=== PATIENT | male | born 1975 | race American Indian/Alaskan Native ===

== ENCOUNTER 2019-11-18 07:04 | Emergency (ER) | payer OTHER ==
[2019-11-18] MEDS ORDERED: ASPIRIN 325 MG TAB PO ONE (07:22)
[2019-11-18 07:43] LABS: Basophils # (Auto) 0.1 K/mm3 (0.0-0.1); Eosinophils # (Auto) 0.1 K/mm3 (0.0-0.4); Eosinophils % (Auto) 0.9 % (0.0-4.3); Hemoglobin 16.8 gm/dl (11.8-15.2); Lymphocytes # (Auto) 2.8 K/mm3 (1.2-5.4); Lymphocytes % (Auto) 26.3 % (13.4-35.0); Mean Corpuscular HGB Conc 33 % (32-34); Mean Corpuscular Volume 83 fl (84-94); Monocytes % (Auto) 9.3 % (0.0-7.3); Platelet Count 467 K/mm3 (140-440); Red Blood Count 6.14 M/mm3 (3.65-5.03); Red Cell Distribution Width 19.9 % (13.2-15.2)
[2019-11-18] MEDS ORDERED: MORPHINE 4 MG/1 ML INJ IV ONE (07:49)
[2019-11-18] MEDS ORDERED: SODIUM CHLORIDE 0.9% 1000 ML 1,000 ML IV ONE ×2 (07:49→07:52)
[2019-11-18] MEDS ORDERED: chlorproMAZINE 25 MG in SODIUM CHLORIDE 0.9% 50 ML IV ONE (07:49)
--- NOTE | 2019-11-18 07:50 | Emergency Department Report ---
ED GI Bleed HPI - General Chief complaint: Chest Pain Stated complaint: CHEST PAIN Time Seen by Provider: 11/18/19 07:45 Source: patient Mode of arrival: Ambulatory Limitations: No Limitations - History of Present Illness Initial comments: Chief complaint: I have been vomiting blood all day." HPI: This is a 44-year-old male with history of diverticulitis and tobacco use who presents with hiccups for the past 3 days since . He has nondescript chest pain. He also has vomited blood several times on yesterday. He has had bloody stools for several weeks. Drinks alcohol only occasionally. He has been using marijuana and cocaine for several years. He is very afraid because his friend had similar symptoms before he of cocaine related complications. MD complaint: gross hematemesis, gross hematochezia -: days(s) (Several days) Severity scale (0 -10): 10 Quality: dull Consistency: constant Associated Symptoms: other (Chest pain hiccups hematemesis hematochezia) - Related Data Previous Rx's Medication Instructions Recorded Last Taken Type Famotidine [Acid Controller] 20 mg PO BID 30 Days #60 tablet 11/18/19 Unknown Rx Promethazine [Phenergan] 25 mg PO Q6HR PRN #10 tab 11/18/19 Unknown Rx Allergies Allergy/AdvReac Type Severity Reaction Status Date / Time No Known Allergies Allergy Verified 06/25/15 20:46 ED Review of Systems ROS: Stated complaint: CHEST PAIN Other details as noted in HPI Comment: All other systems reviewed and negative Constitutional: denies: fever Respiratory: denies: cough Cardiovascular: chest pain Gastrointestinal: hematemesis, hematochezia. denies: abdominal pain ED Past Medical Hx - Past Medical History Previous Medical History?: Yes Additional medical history: Diverticulitis - Surgical History Past Surgical History?: No - Social History Smoking Status: Current Every Day Smoker Substance Use Type: Alcohol - Medications Home Medications: Home Medications Medication Instructions Recorded Confirmed Last Taken Type Famotidine [Acid Controller] 20 mg PO BID 30 Days #60 tablet 11/18/19 Unknown Rx Promethazine [Phenergan] 25 mg PO Q6HR PRN #10 tab 11/18/19 Unknown Rx ED Physical Exam - General Limitations: No Limitations General appearance: alert, in no apparent distress, other (Anxious severe hiccups) - Head Head exam: Present: atraumatic, normocephalic - Eye Eye exam: Present: normal appearance - ENT ENT exam: Present: mucous membranes moist - Neck Neck exam: Present: normal inspection, full ROM - Respiratory Respiratory exam: Present: normal lung sounds bilaterally. Absent: respiratory distress, wheezes, rales, rhonchi - Cardiovascular Cardiovascular Exam: Present: regular rate, normal rhythm, normal heart sounds. Absent: systolic murmur, diastolic murmur, rubs, gallop - GI/Abdominal GI/Abdominal exam: Present: soft, normal bowel sounds. Absent: distended, tenderness, guarding, rebound - Rectal Rectal exam: Present: deferred - Extremities Exam Extremities exam: Present: normal inspection - Neurological Exam Neurological exam: Present: alert, oriented X3 - Psychiatric Psychiatric exam: Present: normal affect, anxious - Skin Skin exam: Present: warm, dry, intact, normal color. Absent: rash ED Course Vital Signs 11/18/19 11/18/19 11/18/19 07:17 07:47 08:00 Temperature 98.3 F Pulse Rate 94 H 93 H Respiratory 20 22 18 Rate Blood Pressure 120/69 122/93 O2 Sat by Pulse 98 99 98 Oximetry 11/18/19 11/18/19 11/18/19 08:30 09:00 09:30 Temperature Pulse Rate 82 80 81 Respiratory 18 12 16 Rate Blood Pressure 135/68 135/96 135/96 O2 Sat by Pulse 100 100 Oximetry 11/18/19 11/18/19 11/18/19 10:00 10:30 11:00 Temperature Pulse Rate 88 83 76 Respiratory 18 17 12 Rate Blood Pressure 135/96 100/68 102/67 O2 Sat by Pulse 100 Oximetry 11/18/19 11/18/19 11:30 12:00 Temperature Pulse Rate 81 80 Respiratory 14 14 Rate Blood Pressure 92/66 91/65 O2 Sat by Pulse 96 Oximetry - Reevaluation(s) Reevaluation #1: 11/18/19 09:21 Hiccup has improved. Patient continues to belch and retch. Nurse observed yellow-colored emesis. ED Medical Decision Making - Lab Data Result diagrams: 11/18/19 07:33 11/18/19 07:33 - EKG Data EKG shows normal: sinus rhythm, axis, intervals, QRS complexes, ST-T waves Rate: normal - EKG Data Interpretation: normal EKG - Radiology Data Radiology results: report reviewed CT chest abdomen pelvis with contrast: No acute abnormality seen, small hiatal hernia no thoracic lesions, no pneumoperitoneum no abdominal wall herniation no obstructive changes mild fatty infiltration of the liver there is colonic diverticulosis without diverticulitis, gallbladder and bile ducts within normal limits. No masses are noted - Medical Decision Making Mr. Perdomo presents with severe chest pain vomiting hiccups. Patient had extensive work-up to rule out peritonitis or thoracic lesion. CBC chemistry revealed volume contraction hemoconcentration elevated BUN and elevated creatinine. Obvious dehydration. Troponin x2 negative CT chest abdomen pelvis revealed hiatal hernia. I suspect that patient has cannabinoid hyperemesis syndrome as well as severe GERD complicated by hiatal hernia. I have prescribed meclizine famotidine discharged home. Critical care attestation.: If time is entered above; I have spent that time in minutes in the direct care of this critically ill patient, excluding procedure time. ED Disposition Clinical Impression: Cannabinoid hyperemesis syndrome, Dehydration, GERD (gastroesophageal reflux disease), Hiatal hernia Disposition: DC-01 TO HOME OR SELFCARE Is pt being admited?: No Does the pt Need Aspirin: No Condition: Stable Instructions: Polysubstance Abuse (ED), Hiatal Hernia (ED) Prescriptions: Famotidine [Acid Controller] 20 mg PO BID 30 Days #60 tablet Promethazine [Phenergan] 25 mg PO Q6HR PRN #10 tab PRN Reason: Nausea Referrals: RAF GALVEZ MD [Staff Physician] - 3-5 Days
[2019-11-18 07:55] LABS: BUN/Creatinine Ratio 17; Blood Urea Nitrogen 27 mg/dL (9-20); Calcium 10.4 mg/dL (8.4-10.2); Hemolysis Index 16
[2019-11-18] MEDS ORDERED: ONDANSETRON 4 MG/2 ML INJ IV NR (08:00)
[2019-11-18 08:22] LABS: Alanine Aminotransferase 24 units/L (7-56); Albumin 4.6 g/dL (3.9-5)
[2019-11-18 08:28] LABS: Bilirubin,Direct < 0.2 mg/dL (0-0.2)
--- NOTE | 2019-11-18 08:38 | XRay Report ---
CHEST 1 VIEW 0812 INDICATION / CLINICAL INFORMATION: Hiccups, hematemesis, chest pain COMPARISON: None available. FINDINGS: SUPPORT DEVICES: None HEART / MEDIASTINUM: No significant abnormality. LUNGS / PLEURA: No significant pulmonary or pleural abnormality. No pneumothorax. ADDITIONAL FINDINGS: No significant additional findings. IMPRESSION: No significant acute abnormality Signer Name: Earl Aguero MD Signed: 11/18/2019 8:34 AM Workstation Name: [id number]
--- NOTE | 2019-11-18 09:03 | Cat Scan Report ---
CT CHEST, ABDOMEN, AND PELVIS WITH CONTRAST INDICATION: Hiccups, hematemesis, chest pain, nausea, vomiting, duration 3 days CONTRAST: 100 cc Omnipaque 300 IV COMPARISON: Portable chest x-ray today All CT scans at this location are performed using CT dose reduction for ALARA by means of automated e xposure control. FINDINGS: No significant focal bony lesions are seen. No significant axillary or chest wall abnormali ties are noted. A small hiatal hernia is seen. No mediastinal or hilar masses are noted. No pleural e ffusions are seen. No pneumothorax or pneumomediastinum are noted. No obvious endobronchial lesions a re seen. Lung rowe are clear of infiltrates, nodules, or masses. No pneumoperitoneum is seen. No significant abdominal wall herniation is noted. No free fluid is seen . No lymphadenopathy is noted. No urinary obstructive changes are seen. Mild fatty infiltration of th e liver is noted without obvious focal mass. Is not significantly enlarged. I see no abnormalities of the spleen, pancreas, adrenals, or kidneys. Gallbladder and bile ducts appear within normal limits. Colonic diverticulosis is moderately prominent and diffuse but I do not see obvious evidence of diver ticulitis. No focal inflammatory changes are seen. No masses are noted. IMPRESSION: No acute abnormalities are seen Signer Name: Earl Aguero MD Signed: 11/18/2019 8:58 AM Workstation Name: [id number]
[2019-11-18] MEDS ORDERED: PANTOPRAZOLE 40 MG INJ IV ONE (09:16)
[2019-11-18] MEDS ORDERED: LORazepam 2 MG/ML VIAL IV ONE (09:17)
[2019-11-18] MEDS ORDERED: ONDANSETRON 4 MG/2 ML INJ IV ONE (09:17)
[2019-11-18] MEDS ORDERED: ALUM-MAG HYDROXIDE-SIMETHICONE 200-200-20MG/5ML ORAL LIQD 30 ML PO ONE (12:48)
[2019-11-18] MEDS ORDERED: LIDOCAINE VISCOUS 2% 15 ML ORAL LIQD PO ONE (12:48)
[2019-11-18 12:49] VITALS: BP 92/66
== END 2019-11-18 13:01 | disposition home or self-care (01) ==
LOC: ED 07:04
DX: F12.188 Cannabis abuse with other cannabis-induced disorder (principal); K44.9 Diaphragmatic hernia without obstruction or gangrene; K21.9 Gastro-esophageal reflux disease without esophagitis; F17.200 Nicotine dependence, unspecified, uncomplicated; Z79.899 Other long term (current) drug therapy
CPT/HCPCS: 36415; 71045; 71260; 74177; 80053; 82550; 83690; 83735; 84484; 85025; 93005; 96361; 96365; 96372; 96374; 96375; 96376; 99284; C9113; J1200; J1630; J2060; J2270; J2405; J3230; J3360; J7030; Q9967; 80048; 80076

== ENCOUNTER 2019-11-18 19:41 | Emergency (ER) | payer OTHER ==
--- NOTE | 2019-11-18 20:19 | Event Note ---
ED Screening Note ED Screening Note: CP that began a week ago having n/v states he "took the medication and not helping" no fever no diarrhea PMHx none no allergies to meds +tobacco +marijuana This initial assessment/diagnostic orders/clinical plan/treatment(s) is/are subject to change based on patients health status, clinical progression and re- assessment by fellow clinical providers in the ED. Further treatment and workup at subsequent clinical providers discretion. Patient/guardian urged not to elope from the ED as their condition may be serious if not clinically assessed and managed. Initial orders include: labs, ekg
[2019-11-18 21:18] LABS: Basophils # (Auto) 0.1 K/mm3 (0.0-0.1); Basophils % (Auto) 0.8 % (0.0-1.8); Eosinophils # (Auto) 0.2 K/mm3 (0.0-0.4); Hematocrit 45.9 % (35.5-45.6); Hemoglobin 15.3 gm/dl (11.8-15.2); Lymphocytes # (Auto) 1.7 K/mm3 (1.2-5.4); Lymphocytes % (Auto) 19.7 % (13.4-35.0); Mean Corpuscular HGB Conc 33 % (32-34); Mean Corpuscular Volume 84 fl (84-94); Monocytes # (Auto) 0.7 K/mm3 (0.0-0.8); Monocytes % (Auto) 8.7 % (0.0-7.3); Platelet Count 386 K/mm3 (140-440); Red Blood Count 5.47 M/mm3 (3.65-5.03); Red Cell Distribution Width 19.7 % (13.2-15.2)
[2019-11-18 21:27] LABS: Alanine Aminotransferase 20 units/L (7-56); Albumin 3.7 g/dL (3.9-5); BUN/Creatinine Ratio 16; Blood Urea Nitrogen 23 mg/dL (9-20); Calcium 8.7 mg/dL (8.4-10.2); Hemolysis Index 10
[2019-11-18] MEDS ORDERED: diphenhydrAMINE 50 MG/ML VIAL IV ONE (21:58)
[2019-11-18] MEDS ORDERED: FAMOTIDINE 20 MG/2 ML INJ IV ONE (21:58)
[2019-11-18] MEDS ORDERED: SODIUM CHLORIDE 0.9% 1000 ML 1,000 ML IV ONE (21:58)
[2019-11-18] MEDS ORDERED: HALOPERIDOL LACTATE 5 MG/1 ML INJ IM STA (21:58)
[2019-11-18] MEDS ORDERED: diazePAM 10 MG/2 ML SYRINGE IV ONE (21:58)
--- NOTE | 2019-11-18 21:59 | Emergency Department Report ---
ED General Adult HPI - General Chief complaint: Chest Pain Stated complaint: ABDOMINAL PAIN/CHEST PAIN PUI?: No Time Seen by Provider: 11/18/19 20:17 Source: patient, RN notes reviewed, old records reviewed Mode of arrival: Ambulatory Limitations: No Limitations - History of Present Illness Initial comments: Patient is a 44-year-old gentleman, with a history of cannabis use, cocaine use, who returns to the emergency room. The patient was seen yesterday, 11/18/[address] Ragland. He had a complaint of nausea, vomiting and chest pain. He had a thorough and extensive work-up performed, including CT scan of the chest, abdomen, pelvis, negative for acute findings, multiple negative troponins, and an unremarkable EKG. Presumptively diagnosed with cannabinoid hyperemesis syndrome. Returns to the emergency room with a complaint of abdominal pain, chest pain, nausea and vomiting. Denies DVT and pulmonary embolism risk factors. Symptoms were resolved with haloperidol, Valium, and Benadryl. At the moment, sleeping on his stretcher, waking up, playing on Facebook on his cell phone, and in no acute distress. -: hour(s) Location: chest, abdomen Consistency: now resolved Improves with: medication - Related Data Previous Rx's Medication Instructions Recorded Last Taken Type Famotidine [Acid Controller] 20 mg PO BID 30 Days #60 tablet 11/18/19 Unknown Rx Promethazine [Phenergan] 25 mg PO Q6HR PRN #10 tab 11/18/19 Unknown Rx Metoclopramide [Reglan] 10 mg PO Q6HR PRN #30 tab 11/19/19 Unknown Rx Allergies Allergy/AdvReac Type Severity Reaction Status Date / Time No Known Allergies Allergy Verified 06/25/15 20:46 ED Review of Systems ROS: Stated complaint: ABDOMINAL PAIN/CHEST PAIN Other details as noted in HPI Constitutional: denies: fever Cardiovascular: chest pain Gastrointestinal: abdominal pain, nausea, vomiting ED Past Medical Hx - Past Medical History Previous Medical History?: Yes Additional medical history: Diverticulitis - Surgical History Past Surgical History?: No - Social History Smoking Status: Current Every Day Smoker Substance Use Type: Alcohol, Marijuana - Medications Home Medications: Home Medications Medication Instructions Recorded Confirmed Last Taken Type Famotidine [Acid Controller] 20 mg PO BID 30 Days #60 tablet 11/18/19 Unknown Rx Promethazine [Phenergan] 25 mg PO Q6HR PRN #10 tab 11/18/19 Unknown Rx Metoclopramide [Reglan] 10 mg PO Q6HR PRN #30 tab 11/19/19 Unknown Rx ED Physical Exam - General Limitations: No Limitations General appearance: alert, anxious, in distress - Head Head exam: Present: atraumatic, normocephalic - Eye Eye exam: Present: normal appearance, EOMI. Absent: nystagmus - ENT ENT exam: Present: normal exam, normal orophraynx, mucous membranes moist, normal external ear exam - Neck Neck exam: Present: normal inspection, full ROM. Absent: tenderness, meningismus - Respiratory Respiratory exam: Present: normal lung sounds bilaterally. Absent: respiratory distress - Cardiovascular Cardiovascular Exam: Present: regular rate, normal rhythm, normal heart sounds. Absent: bradycardia, tachycardia, irregular rhythm, systolic murmur, diastolic murmur, rubs, gallop - GI/Abdominal GI/Abdominal exam: Present: soft, normal bowel sounds. Absent: distended, tenderness, guarding, rebound, rigid, pulsatile mass - Rectal Rectal exam: Present: deferred - Extremities Exam Extremities exam: Present: normal inspection, full ROM, other (2+ pulses noted in the bilateral upper and lower extremities. There is no palpable cord. negative Homans sign. Muscular compartments are soft. The pelvis is stable.). Absent: pedal edema, calf tenderness - Back Exam Back exam: Present: normal inspection, full ROM. Absent: tenderness, CVA tenderness (R), CVA tenderness (L), paraspinal tenderness, vertebral tenderness - Neurological Exam Neurological exam: Present: alert, normal gait, other (No facial droop. Tongue midline. Extraocular movements intact bilaterally. Facial sensation intact to light touch in V1, V2, V3 distribution bilaterally. 5 and a 5 strength in 4 extremities. Sensation intact to light touch in 4 extremities.). Absent: motor sensory deficit - Psychiatric Psychiatric exam: Present: anxious - Skin Skin exam: Present: warm, dry, intact, normal color. Absent: rash ED Course Vital Signs 11/18/19 11/18/19 11/18/19 19:46 22:13 22:15 Temperature 98.5 F Pulse Rate 100 H 91 H 94 H Respiratory 18 23 16 Rate Blood Pressure 124/83 130/90 O2 Sat by Pulse 97 97 Oximetry 11/18/19 11/18/19 11/18/19 22:30 22:46 23:00 Temperature Pulse Rate 78 88 83 Respiratory 25 H 19 24 Rate Blood Pressure 132/83 132/83 108/61 O2 Sat by Pulse 98 78 L 99 Oximetry 11/18/19 11/18/19 11/18/19 23:15 23:30 23:45 Temperature Pulse Rate 80 78 74 Respiratory 16 15 15 Rate Blood Pressure 92/58 92/55 108/65 O2 Sat by Pulse 96 95 98 Oximetry ED Medical Decision Making - Lab Data Result diagrams: 11/18/19 20:28 11/18/19 20:28 Vital Signs 11/18/19 11/18/19 11/18/19 19:46 22:13 22:15 Temperature 98.5 F Pulse Rate 100 H 91 H 94 H Respiratory 18 23 16 Rate Blood Pressure 124/83 130/90 O2 Sat by Pulse 97 97 Oximetry 11/18/19 11/18/19 11/18/19 22:30 22:46 23:00 Temperature Pulse Rate 78 88 83 Respiratory 25 H 19 24 Rate Blood Pressure 132/83 132/83 108/61 O2 Sat by Pulse 98 78 L 99 Oximetry 11/18/19 11/18/19 11/18/19 23:15 23:30 23:45 Temperature Pulse Rate 80 78 74 Respiratory 16 15 15 Rate Blood Pressure 92/58 92/55 108/65 O2 Sat by Pulse 96 95 98 Oximetry Lab Results 11/18/19 11/18/19 11/18/19 Range/Units 20:28 20:28 20:28 WBC 8.5 (4.5-11.0) K/mm3 RBC 5.47 H (3.65-5.03) M/mm3 Hgb 15.3 H (11.8-15.2) gm/dl Hct 45.9 H (35.5-45.6) % MCV 84 (84-94) fl MCH 28 (28-32) pg MCHC 33 (32-34) % RDW 19.7 H (13.2-15.2) % Plt Count 386 (140-440) K/mm3 Lymph % (Auto) 19.7 (13.4-35.0) % [place] % (Auto) 8.7 H (0.0-7.3) % Eos % (Auto) 2.0 (0.0-4.3) % Baso % (Auto) 0.8 (0.0-1.8) % Lymph # 1.7 (1.2-5.4) K/mm3 [place] # 0.7 (0.0-0.8) K/mm3 Eos # 0.2 (0.0-0.4) K/mm3 Baso # 0.1 (0.0-0.1) K/mm3 Seg Neutrophils % 68.8 (40.0-70.0) % Seg Neutrophils # 5.9 (1.8-7.7) K/mm3 Sodium 142 (137-145) mmol/L Potassium 4.0 (3.6-5.0) mmol/L Chloride 107.5 H (98-107) mmol/L Carbon Dioxide 22 (22-30) mmol/L Anion Gap 17 mmol/L BUN 23 H (9-20) mg/dL Creatinine 1.4 (0.8-1.5) mg/dL Estimated GFR > 60 ml/min BUN/Creatinine Ratio 16 % Glucose 123 H (75-100) mg/dL Calcium 8.7 D (8.4-10.2) mg/dL Magnesium (1.7-2.3) mg/dL Total Bilirubin 0.30 (0.1-1.2) mg/dL AST 19 (5-40) units/L ALT 20 (7-56) units/L Alkaline Phosphatase 80 (35-129) units/L Total Creatine Kinase (55-170) units/L Troponin T < 0.010 (0.00-0.029) ng/mL Total Protein 6.8 (6.3-8.2) g/dL Albumin 3.7 L (3.9-5) g/dL Albumin/Globulin Ratio 1.2 % Lipase 35 (13-60) units/L 06/21/20 Range/Units 21:59 WBC (4.5-11.0) K/mm3 RBC (3.65-5.03) M/mm3 Hgb (11.8-15.2) gm/dl Hct (35.5-45.6) % MCV (84-94) fl MCH (28-32) pg MCHC (32-34) % RDW (13.2-15.2) % Plt Count (140-440) K/mm3 Lymph % (Auto) (13.4-35.0) % [place] % (Auto) (0.0-7.3) % Eos % (Auto) (0.0-4.3) % Baso % (Auto) (0.0-1.8) % Lymph # (1.2-5.4) K/mm3 [place] # (0.0-0.8) K/mm3 Eos # (0.0-0.4) K/mm3 Baso # (0.0-0.1) K/mm3 Seg Neutrophils % (40.0-70.0) % Seg Neutrophils # (1.8-7.7) K/mm3 Sodium (137-145) mmol/L Potassium (3.6-5.0) mmol/L Chloride (98-107) mmol/L Carbon Dioxide (22-30) mmol/L Anion Gap mmol/L BUN (9-20) mg/dL Creatinine (0.8-1.5) mg/dL Estimated GFR ml/min BUN/Creatinine Ratio % Glucose (75-100) mg/dL Calcium (8.4-10.2) mg/dL Magnesium 2.20 (1.7-2.3) mg/dL Total Bilirubin (0.1-1.2) mg/dL AST (5-40) units/L ALT (7-56) units/L Alkaline Phosphatase (35-129) units/L Total Creatine Kinase 307 H (55-170) units/L Troponin T (0.00-0.029) ng/mL Total Protein (6.3-8.2) g/dL Albumin (3.9-5) g/dL Albumin/Globulin Ratio % Lipase (13-60) units/L - EKG Data -: EKG Interpreted by [facility] EKG shows normal: sinus rhythm Rate: normal - EKG Data When compared to previous EKG there are: no significant change Interpretation: unchanged when compared t 11/19/19 00:27 EKG today shows a sinus rhythm, 92 bpm, normal axis, QTC 444 ms, motion artifact, not a STEMI, appears unchanged from prior EKG from June 27, 2015 - Radiology Data Radiology results: report reviewed, image reviewed CT scan of the chest, abdomen, pelvis from 11/18/2019 reviewed and appreciated, negative for acute finding - Medical Decision Making Differential diagnosis, including but not limited to: Cannabinoid hyperemesis syndrome, GERD, gastritis, hiatal hernia Assessment and plan: 44-year-old gentleman with recurrent complaint of epigastric pain, nausea, vomiting and chest discomfort. Low risk by Wells criteria, tachycardia resolved, not currently tachypneic or hypoxic. This is very unlikely to be a pulmonary embolism. Has had multiple negative troponins within the past 24 hours, EKG unchanged from prior. Symptoms are resolved with haloperidol, Valium, Benadryl. This is most likely GI related, likely cannabinoid hyperemesis syndrome, possible component of GERD, gastritis, hiatal hernia. Patient resting comfortably in his stretcher, in no acute distress, noted to be playing on his cell phone, no active vomiting. Patient will need to engage in diet and lifestyle modifications. He is suitable for discharge at this point time. Low risk for major adverse cardiac event as per heart score Critical care attestation.: If time is entered above; I have spent that time in minutes in the direct care of this critically ill patient, excluding procedure time. ED Disposition Clinical Impression: Cannabinoid hyperemesis syndrome Disposition: DC-01 TO HOME OR SELFCARE Is pt being admited?: No Does the pt Need Aspirin: No Condition: Stable Additional Instructions: Avoid consumption of Motrin, ibuprofen, Naprosyn, Aleve, alcohol, heavy and spicy foods. Avoid consumption of tobacco, and marijuana , cocaine. Patient most likely has cannabinoid hyperemesis syndrome. Cure for this involves discontinuation and avoidance of marijuana. Marijuana may reside in soft tissue/fatty tissue for 4 to 6 weeks. Therefore, patient may have int ermittent exacerbation of the symptoms that he presents with. Patient may find relief with a hot bath and/or hot shower, and he may also purchase hot sauce, at any supermarket, of the brand of his choosing, and rub the hot sauce on his belly as often as he likes, which may sometimes help out with cannabinoid hyperemesis syndrome. The patient may take [id number] Tylenol and or Pepcid as needed for pain. The patient may continue the medications that were prescribed from him yesterday. He may also take the Reglan medication as needed for nausea and vomiting. We recommend follow-up with an outpatient manager distribution center within the next 3 days for complaint of chest pain. Recommend follow-up with an outpatient primary care doctor or branch library clerk within the next 7 to 10 days for complaint of abdominal pain, nausea and vomiting. Please return to the emergency room right away with new pain, worsening pain, migration of pain, projectile vomiting, change in mental status, confusion, inability to tolerate liquid feeds, new, worsened or different symptoms not present on the initial emergency room evaluation. Referrals: [facility] [Provider Group] - 3-5 Days [facility] [Provider Group] - 3-5 Days [facility] [Provider Group] - 3-5 Days
[2019-11-18 23:50] VITALS: BP 108/65
== END 2019-11-19 01:05 | disposition home or self-care (01) ==
LOC: ED 19:41
DX: F12.929 Cannabis use, unspecified with intoxication, unspecified (principal); F17.200 Nicotine dependence, unspecified, uncomplicated; F12.10 Cannabis abuse, uncomplicated; R11.10 Vomiting, unspecified
CPT/HCPCS: 36415; 80053; 82550; 83690; 83735; 84484; 85025; 93005; 96361; 96372; 96374; 96375; 99284; J1200; J1630; J3360; J7030